=== PATIENT | male | born 1965 | race Two or more races ===

== ENCOUNTER 2022-11-17 10:09 | Inpatient (IN) | payer OTHER ==
[2022-11-17] MEDS ORDERED: ACETAMINOPHEN 1000 MG/100 ML BAG IVPB ONE ×3 (12:05→18:41)
[2022-11-17] MEDS ORDERED: SODIUM CHLORIDE 0.9% 500 ML INFUS.BAG IV ONE (12:05)
[2022-11-17] MEDS ORDERED: ACETAMINOPHEN INJECTION 100 ML IVPB ONE ×2 (13:19→19:03)
[2022-11-17 13:24] LABS: INR 1.25 (0.83-1.09); PROTHROMBIN TIME (PATIENT) 14.5 SEC (9.7-13.0)
[2022-11-17 13:27] LABS: ACTIVATED PTT 32.6 SECONDS (25.2-36.5)
[2022-11-17 13:28] LABS: BASO % 0.3 % (0-2.0); EOS % 0.1 % (0-4.5); HEMATOCRIT 60.7 % (35.4-49); LYMPH % 6.8 % (8-40); MCH 32.7 pg (25.7-33.7); MCHC 34.2 g/dl (32.0-35.9); MEAN CELL VOLUME 95.5 fl (80-96); MONO % 9.8 % (3.8-10.2); PLATELET COUNT 221 10^3/uL (134-434); RBC 6.36 M/mm3 (4.00-5.60); RDW 13.4 % (11.9-15.9); WHITE BLOOD COUNT 15.9 K/mm3 (4.0-10.0)
[2022-11-17 13:30] LABS: HEMOGLOBIN 20.8 GM/dL (11.7-16.9)
[2022-11-17 13:36] LABS: CHLORIDE 95 mmol/L (98-107); SODIUM 120 mmol/L (136-145)
[2022-11-17 13:38] LABS: CALCIUM 8.8 mg/dL (8.5-10.1)
[2022-11-17 13:39] LABS: ALBUMIN 2.9 g/dl (3.4-5.0); BLOOD UREA NITROGEN 22.4 mg/dL (7-18); CO2 28 mmol/L (21-32); GLUCOSE,RANDOM 179 mg/dL (74-106)
[2022-11-17 13:42] LABS: CREATININE 1.3 mg/dL (0.55-1.3)
[2022-11-17] MEDS ORDERED: CEFTRIAXONE 1 GM in DEXTROSE 5%-WATER - 100 ML IVPB ONE (13:42)
[2022-11-17] MEDS ORDERED: VANCOMYCIN/WATER 2 GM/400 ML PREMIX BAG (RESTRICTED TO ID ONLY) IVPB ONE (13:42)
[2022-11-17 13:43] LABS: TOT PROT 10.2 g/dl (6.4-8.2)
[2022-11-17 14:09] LABS: ANION GAP -2 MMOL/L (8-16); POTASSIUM > 10.0 mmol/L (3.5-5.1)
[2022-11-17 14:23] LABS: ERYTHROCYTE SEDIMENTATION RATE 5 mm/hr (0-20)
[2022-11-17] MEDS ORDERED: KETOROLAC TROMETHAMINE 15 MG/ML VIAL IVPUSH ONE (15:11)
[2022-11-17] MEDS ORDERED: CEFTRIAXONE 1 GM/50 ML BAG ONE (15:12)
[2022-11-17] MEDS ORDERED: KETOROLAC TROMETHAMINE 15 MG/ML VIAL ONE (15:22)
[2022-11-17 15:59] LABS: BASO % 0.2 % (0-2.0); EOS % 0.1 % (0-4.5); HEMATOCRIT 54.6 % (35.4-49); HEMOGLOBIN 18.6 GM/dL (11.7-16.9); LYMPH % 5.4 % (8-40); MCH 32.5 pg (25.7-33.7); MCHC 34.1 g/dl (32.0-35.9); MEAN CELL VOLUME 95.1 fl (80-96); MEAN PLT VOLUME 8.9 fl (7.5-11.1); MONO % 8.6 % (3.8-10.2); NEUT % 85.7 % (42.8-82.8); PLATELET COUNT 211 10^3/uL (134-434); RBC 5.74 M/mm3 (4.00-5.60); RDW 12.6 % (11.9-15.9); WHITE BLOOD COUNT 17.4 K/mm3 (4.0-10.0)
[2022-11-17 16:59] LABS: POTASSIUM 4.4 mmol/L (3.5-5.1)
[2022-11-17 17:04] LABS: ALBUMIN 2.9 g/dl (3.4-5.0); BLOOD UREA NITROGEN 18.1 mg/dL (7-18)
[2022-11-17 17:07] LABS: CREATININE 1.1 mg/dL (0.55-1.3)
[2022-11-17 17:09] LABS: BILIRUBIN,TOTAL 0.5 mg/dL (0.2-1)
[2022-11-17 17:12] LABS: TOT PROT 6.6 g/dl (6.4-8.2)
[2022-11-17] MEDS: INSULIN SLIDING SCALE (NOVOLOG) 1 VIAL SQ SCH (23:23)
[2022-11-18] MEDS: ACETAMINOPHEN 1000 MG/100 ML BAG IVPB PRN ×2 (00:29→06:38)
[2022-11-18 01:06] VITALS: BMI 25.7
[2022-11-18] MEDS: PIPERACILLIN/TAZOB 3.375 GM 3.375 GM in DEXTROSE 5%-WATER - 50 ML IVPB SCH ×5 (01:57→20:41)
[2022-11-18] MEDS ORDERED: VANCOMYCIN/WATER FOR INJ (PEG) 1,000 MG/200 ML BAG IVPB ONE (06:00)
[2022-11-18] MEDS: INSULIN SLIDING SCALE (NOVOLOG) 1 VIAL SQ SCH ×4 (06:40→21:46)
[2022-11-18 07:09] LABS: BASO % 0.3 % (0-2.0); EOS % 0.8 % (0-4.5); HEMOGLOBIN 17.9 GM/dL (11.7-16.9); LYMPH % 8.2 % (8-40); MCH 32.2 pg (25.7-33.7); MCHC 33.1 g/dl (32.0-35.9); MEAN CELL VOLUME 97.2 fl (80-96); MEAN PLT VOLUME 9.5 fl (7.5-11.1); MONO % 10.4 % (3.8-10.2); NEUT % 80.3 % (42.8-82.8); PLATELET COUNT 202 10^3/uL (134-434); RBC 5.55 M/mm3 (4.00-5.60); RDW 12.4 % (11.9-15.9)
[2022-11-18 07:29] LABS: POTASSIUM 4.1 mmol/L (3.5-5.1)
[2022-11-18 07:31] LABS: ALBUMIN 2.7 g/dl (3.4-5.0); CALCIUM 7.7 mg/dL (8.5-10.1)
[2022-11-18 07:32] LABS: BLOOD UREA NITROGEN 15.3 mg/dL (7-18); MAGNESIUM 2.1 mg/dL (1.8-2.4)
[2022-11-18 07:35] LABS: CREATININE 0.8 mg/dL (0.55-1.3)
[2022-11-18 07:36] LABS: BILIRUBIN,TOTAL 0.6 mg/dL (0.2-1); TOT PROT 6.5 g/dl (6.4-8.2)
[2022-11-18 07:37] LABS: CHOLESTEROL 77 mg/dL (50-200)
[2022-11-18 07:38] LABS: PHOSPHOROUS 2.3 mg/dL (2.5-4.9)
[2022-11-18 07:39] LABS: LDL CHOLESTEROL (ONLY SJRH) 36 mg/dL (5-100)
[2022-11-18 07:41] LABS: HDL CHOLESTEROL 33 mg/dL (40-60)
[2022-11-18] MEDS ORDERED: INSULIN (NOVOLOG) ASPART 100 UNITS/ML 10ML VIAL ONE (08:33)
[2022-11-18] MEDS: ENOXAPARIN NA (PORCINE) 40 MG/0.4 ML DISP.SYRIN SQ SCH (09:47)
[2022-11-18] MEDS: LISINOPRIL 10 MG TABLET PO SCH (09:47)
[2022-11-18] MEDS ORDERED: CEFTRIAXONE 1 GM in DEXTROSE 5%-WATER - 50 ML IVPB SCH (10:00)
[2022-11-18 10:53] LABS: PH,URINE 5.5 (5.0-8.0); URINE APPEARANCE CLEAR; URINE BILIRUBIN NEGATIVE (NEGATIVE); URINE COLOR YELLOW; URINE GLUCOSE (UA) 3+ (NEGATIVE); URINE KETONE TRACE (NEGATIVE); URINE LEUK ESTERASE NEGATIVE (NEGATIVE); URINE NITRITE NEGATIVE (NEGATIVE); URINE PROTEIN TRACE (NEGATIVE)
[2022-11-18] MEDS ORDERED: oxyCODONE HCL 5 MG TABLET PO PRN (11:59)
[2022-11-18] MEDS ORDERED: ACETAMINOPHEN 1000 MG/100 ML BAG IVPB PRN (13:17)
[2022-11-18] MEDS: oxyCODONE HCL 5 MG TABLET PO PRN ×2 (13:40→21:48)
[2022-11-18] MEDS: VANCOMYCIN/WATER 1250 MG 1,250 MG/250 ML BAG IVPB SCH (13:42)
[2022-11-18] MEDS: ACETAMINOPHEN 500 MG TABLET (FP) PO SCH ×2 (17:12→22:15)
[2022-11-18] MEDS: LIDOCAINE 5% TOPICAL PATCH TP SCH (17:14)
[2022-11-18] MEDS ORDERED: VANCOMYCIN/WATER FOR INJ (PEG) 1,000 MG/200 ML BAG IVPB SCH (18:00)
[2022-11-18] MEDS: LIDOCAINE PATCH REMOVAL MC SCH (21:46)
[2022-11-18] MEDS: ROSUVASTATIN CA 20 MG TABLET PO SCH (22:31)
[2022-11-19] MEDS: VANCOMYCIN/WATER 1250 MG 1,250 MG/250 ML BAG IVPB SCH (01:00)
[2022-11-19] MEDS: PIPERACILLIN/TAZOB 3.375 GM 3.375 GM in DEXTROSE 5%-WATER - 50 ML IVPB SCH ×3 (02:15→17:31)
[2022-11-19] MEDS: oxyCODONE HCL 5 MG TABLET PO PRN ×3 (05:56→19:52)
[2022-11-19] MEDS: ACETAMINOPHEN 500 MG TABLET (FP) PO SCH ×4 (05:57→23:53)
[2022-11-19] MEDS: INSULIN SLIDING SCALE (NOVOLOG) 1 VIAL SQ SCH ×4 (06:04→23:54)
[2022-11-19] MEDS: LIDOCAINE 5% TOPICAL PATCH TP SCH (09:42)
[2022-11-19] MEDS: ENOXAPARIN NA (PORCINE) 40 MG/0.4 ML DISP.SYRIN SQ SCH (09:43)
[2022-11-19] MEDS: LISINOPRIL 10 MG TABLET PO SCH (09:43)
[2022-11-19] MEDS ORDERED: oxyCODONE HCL 5 MG TABLET PO PRN (10:18)
[2022-11-19 11:00] LABS: BASO % 0.4 % (0-2.0); EOS % 3.1 % (0-4.5); HEMATOCRIT 51.7 % (35.4-49); LYMPH % 10.5 % (8-40); MCH 32.3 pg (25.7-33.7); MCHC 32.9 g/dl (32.0-35.9); MEAN CELL VOLUME 98.1 fl (80-96); MEAN PLT VOLUME 9.3 fl (7.5-11.1); MONO % 8.8 % (3.8-10.2); NEUT % 77.2 % (42.8-82.8); PLATELET COUNT 190 10^3/uL (134-434); RBC 5.27 M/mm3 (4.00-5.60); RDW 12.4 % (11.9-15.9); WHITE BLOOD COUNT 10.9 K/mm3 (4.0-10.0)
[2022-11-19 11:19] LABS: POTASSIUM 4.2 mmol/L (3.5-5.1)
[2022-11-19 11:29] LABS: ALBUMIN 2.5 g/dl (3.4-5.0); BLOOD UREA NITROGEN 15.7 mg/dL (7-18); CALCIUM 7.9 mg/dL (8.5-10.1); CREATININE 0.9 mg/dL (0.55-1.3)
[2022-11-19 11:30] LABS: BILIRUBIN,TOTAL 0.2 mg/dL (0.2-1); MAGNESIUM 2.2 mg/dL (1.8-2.4)
[2022-11-19] MEDS: BACITRACIN ZINC 15 GM TUBE TOPICAL OINTMENT TP SCH (12:50)
[2022-11-19] MEDS: ROSUVASTATIN CA 20 MG TABLET PO SCH (23:53)
[2022-11-19] MEDS: LIDOCAINE PATCH REMOVAL MC SCH (23:54)
[2022-11-20] MEDS: PIPERACILLIN/TAZOB 3.375 GM 3.375 GM in DEXTROSE 5%-WATER - 50 ML IVPB SCH ×3 (02:39→17:50)
[2022-11-20] MEDS: oxyCODONE HCL 5 MG TABLET PO PRN ×3 (03:01→19:46)
[2022-11-20] MEDS: INSULIN SLIDING SCALE (NOVOLOG) 1 VIAL SQ SCH ×4 (06:01→22:33)
[2022-11-20] MEDS: ACETAMINOPHEN 500 MG TABLET (FP) PO SCH ×4 (06:01→22:34)
[2022-11-20 08:18] LABS: BASO % 0.5 % (0-2.0); EOS % 4.4 % (0-4.5); HEMATOCRIT 50.9 % (35.4-49); HEMOGLOBIN 17.2 GM/dL (11.7-16.9); LYMPH % 16.7 % (8-40); MCH 32.4 pg (25.7-33.7); MCHC 33.8 g/dl (32.0-35.9); MEAN CELL VOLUME 95.8 fl (80-96); MEAN PLT VOLUME 8.7 fl (7.5-11.1); MONO % 10.5 % (3.8-10.2); NEUT % 67.9 % (42.8-82.8); PLATELET COUNT 231 10^3/uL (134-434); RBC 5.31 M/mm3 (4.00-5.60); RDW 12.4 % (11.9-15.9); WHITE BLOOD COUNT 9.1 K/mm3 (4.0-10.0)
[2022-11-20 08:26] LABS: INR 1.13 (0.83-1.09); PROTHROMBIN TIME (PATIENT) 13.1 SEC (9.7-13.0)
[2022-11-20] MEDS ORDERED: BUPIVACAINE HCL/PF 0.5% (5MG/ML) 10 ML VIAL ONE (08:41)
[2022-11-20] MEDS ORDERED: LIDOCAINE HCL 1%, 10 MG/ML (10ML VIAL) MDV ONE (08:41)
[2022-11-20 08:49] LABS: POTASSIUM 5.1 mmol/L (3.5-5.1)
[2022-11-20 08:51] LABS: ALBUMIN 2.5 g/dl (3.4-5.0); BLOOD UREA NITROGEN 14.1 mg/dL (7-18); CALCIUM 8.4 mg/dL (8.5-10.1)
[2022-11-20 08:52] LABS: MAGNESIUM 2.1 mg/dL (1.8-2.4)
[2022-11-20 08:55] LABS: CREATININE 0.8 mg/dL (0.55-1.3)
[2022-11-20 08:56] LABS: BILIRUBIN,TOTAL 0.2 mg/dL (0.2-1); TOT PROT 6.2 g/dl (6.4-8.2)
[2022-11-20] MEDS ORDERED: LIDOCAINE HCL/PF 2% SDV 5ML VIAL ONE (09:40)
[2022-11-20] MEDS ORDERED: PROPOFOL 20 ML ONE (09:40)
[2022-11-20] MEDS ORDERED: MIDAZOLAM HCL 2 MG/2 ML SINGLE DOSE VIAL ONE (09:41)
[2022-11-20] MEDS ORDERED: PIPERACILLIN/TAZOBACTAM 3.375 GM VIAL IVPB ONE ×2 (09:46→09:55)
[2022-11-20] MEDS ORDERED: DEXAMETHASONE SOD PHOSPHATE 4 MG/1 ML VIAL ONE (10:03)
[2022-11-20] MEDS: BACITRACIN ZINC 15 GM TUBE TOPICAL OINTMENT TP SCH (10:03)
[2022-11-20] MEDS: LIDOCAINE 5% TOPICAL PATCH TP SCH (10:04)
[2022-11-20] MEDS: ENOXAPARIN NA (PORCINE) 40 MG/0.4 ML DISP.SYRIN SQ SCH (10:04)
[2022-11-20] MEDS ORDERED: KETOROLAC TROMETHAMINE 30 MG/1 ML VIAL ONE (10:21)
[2022-11-20] MEDS ORDERED: ONDANSETRON 4 MG/2 ML VIAL ONE (10:21)
[2022-11-20] MEDS ORDERED: PROMETHAZINE HCL 25 MG/1 ML VIAL IVPB PRN ×2 (10:40→11:23)
[2022-11-20] MEDS ORDERED: ACETAMINOPHEN 1000 MG/100 ML BAG IVPB ONE (10:40)
[2022-11-20] MEDS ORDERED: ONDANSETRON 4 MG/2 ML VIAL IVPUSH PRN ×2 (10:40→11:23)
[2022-11-20] MEDS ORDERED: LACTATED RINGERS SOLUTION 1,000 ML IV SCH (10:45)
[2022-11-20] MEDS ORDERED: ACETAMINOPHEN INJECTION 100 ML IVPB ONE (11:15)
[2022-11-20] MEDS: LACTATED RINGERS SOLUTION 1,000 ML IV SCH (11:45)
[2022-11-20] MEDS ORDERED: LIDOCAINE PATCH REMOVAL MC SCH (22:00)
[2022-11-20] MEDS: ROSUVASTATIN CA 20 MG TABLET PO SCH (22:29)
[2022-11-20] MEDS: INSULIN (LEVEMIR) 100 UNITS/ML UNITS SQ SCH (22:29)
[2022-11-20] MEDS: LIDOCAINE PATCH REMOVAL MC SCH (22:30)
[2022-11-20] MEDS: LISINOPRIL 10 MG TABLET PO SCH (22:34)
[2022-11-21] MEDS: PIPERACILLIN/TAZOB 3.375 GM 3.375 GM in DEXTROSE 5%-WATER - 50 ML IVPB SCH ×3 (02:23→17:00)
[2022-11-21] MEDS: oxyCODONE HCL 5 MG TABLET PO PRN ×3 (02:25→16:56)
[2022-11-21] MEDS: ACETAMINOPHEN 500 MG TABLET (FP) PO SCH ×4 (06:10→23:02)
[2022-11-21] MEDS: INSULIN SLIDING SCALE (NOVOLOG) 1 VIAL SQ SCH ×4 (06:11→21:58)
[2022-11-21 07:57] LABS: BASO % 0.2 % (0-2.0); EOS % 0.4 % (0-4.5); HEMATOCRIT 50.8 % (35.4-49); HEMOGLOBIN 16.6 GM/dL (11.7-16.9); LYMPH % 12.6 % (8-40); MCH 31.8 pg (25.7-33.7); MCHC 32.7 g/dl (32.0-35.9); MEAN CELL VOLUME 97.2 fl (80-96); MEAN PLT VOLUME 9.1 fl (7.5-11.1); MONO % 6.5 % (3.8-10.2); NEUT % 80.3 % (42.8-82.8); PLATELET COUNT 226 10^3/uL (134-434); RBC 5.23 M/mm3 (4.00-5.60); RDW 12.3 % (11.9-15.9); WHITE BLOOD COUNT 9.9 K/mm3 (4.0-10.0)
[2022-11-21 08:14] LABS: POTASSIUM 4.5 mmol/L (3.5-5.1)
[2022-11-21 08:17] LABS: CALCIUM 8.5 mg/dL (8.5-10.1)
[2022-11-21 08:18] LABS: ALBUMIN 2.6 g/dl (3.4-5.0); MAGNESIUM 2.1 mg/dL (1.8-2.4)
[2022-11-21 08:21] LABS: CREATININE 0.8 mg/dL (0.55-1.3)
[2022-11-21 08:22] LABS: BILIRUBIN,TOTAL 0.2 mg/dL (0.2-1); TOT PROT 6.2 g/dl (6.4-8.2)
[2022-11-21] MEDS: LISINOPRIL 10 MG TABLET PO SCH (10:25)
[2022-11-21] MEDS: LIDOCAINE 5% TOPICAL PATCH TP SCH (10:25)
[2022-11-21] MEDS: ENOXAPARIN NA (PORCINE) 40 MG/0.4 ML DISP.SYRIN SQ SCH (10:25)
[2022-11-21] MEDS ORDERED: INSULIN (NOVOLOG) ASPART 100 UNITS/ML 10ML VIAL ONE ×3 (11:45→21:52)
[2022-11-21] MEDS: LACTATED RINGERS SOLUTION 1,000 ML IV SCH (12:09)
[2022-11-21] MEDS: INSULIN (LEVEMIR) 100 UNITS/ML UNITS SQ SCH (21:58)
[2022-11-21] MEDS: ROSUVASTATIN CA 20 MG TABLET PO SCH (21:58)
[2022-11-21] MEDS: LIDOCAINE PATCH REMOVAL MC SCH (22:01)
[2022-11-22] MEDS: PIPERACILLIN/TAZOB 3.375 GM 3.375 GM in DEXTROSE 5%-WATER - 50 ML IVPB SCH ×3 (01:38→17:27)
[2022-11-22] MEDS: LACTATED RINGERS SOLUTION 1,000 ML IV SCH ×2 (01:57→17:26)
[2022-11-22] MEDS: ACETAMINOPHEN 500 MG TABLET (FP) PO SCH ×4 (05:14→22:25)
[2022-11-22] MEDS: oxyCODONE HCL 5 MG TABLET PO PRN (05:16)
[2022-11-22] MEDS ORDERED: INSULIN (NOVOLOG) ASPART 100 UNITS/ML 10ML VIAL ONE (06:38)
[2022-11-22] MEDS: INSULIN SLIDING SCALE (NOVOLOG) 1 VIAL SQ SCH ×4 (06:41→21:39)
[2022-11-22 07:15] VITALS: RESP 18
[2022-11-22 08:36] LABS: BASO % 1.2 % (0-2.0); EOS % 3.2 % (0-4.5); HEMATOCRIT 50.5 % (35.4-49); HEMOGLOBIN 17.1 GM/dL (11.7-16.9); LYMPH % 31.9 % (8-40); MCH 32.1 pg (25.7-33.7); MCHC 33.8 g/dl (32.0-35.9); MEAN PLT VOLUME 8.7 fl (7.5-11.1); MONO % 10.5 % (3.8-10.2); NEUT % 53.2 % (42.8-82.8); PLATELET COUNT 221 10^3/uL (134-434); RBC 5.32 M/mm3 (4.00-5.60); RDW 12.6 % (11.9-15.9); WHITE BLOOD COUNT 6.5 K/mm3 (4.0-10.0)
[2022-11-22 08:48] LABS: CHLORIDE 107 mmol/L (98-107); POTASSIUM 4.5 mmol/L (3.5-5.1); SODIUM 141 mmol/L (136-145)
[2022-11-22 08:56] LABS: TOT PROT 5.9 g/dl (6.4-8.2)
[2022-11-22 08:57] LABS: ALBUMIN 2.5 g/dl (3.4-5.0)
[2022-11-22 08:58] LABS: ANION GAP 4 MMOL/L (8-16); BLOOD UREA NITROGEN 14.4 mg/dL (7-18); CALCIUM 8.6 mg/dL (8.5-10.1); CO2 30 mmol/L (21-32); MAGNESIUM 1.7 mg/dL (1.8-2.4); SGPT/ALT 60 U/L (13-61)
[2022-11-22 08:59] LABS: CREATININE 0.8 mg/dL (0.55-1.3); GLUCOSE,RANDOM 182 mg/dL (74-106); SGOT/AST 50 U/L (15-37)
[2022-11-22 09:00] LABS: BILIRUBIN,TOTAL < 0.1 mg/dL (0.2-1)
[2022-11-22 09:01] LABS: ALK PHOS 68 U/L (45-117)
[2022-11-22] MEDS ORDERED: ERGOCALCIFEROL (VIT D2) 50,000 UNIT (1.25 MG) CAPSULE PO SCH ×2 (10:00)
[2022-11-22] MEDS: ENOXAPARIN NA (PORCINE) 40 MG/0.4 ML DISP.SYRIN SQ SCH (10:48)
[2022-11-22] MEDS: LISINOPRIL 10 MG TABLET PO SCH (10:49)
[2022-11-22] MEDS: LIDOCAINE 5% TOPICAL PATCH TP SCH (10:49)
[2022-11-22] MEDS: INSULIN (LEVEMIR) 100 UNITS/ML UNITS SQ SCH (17:28)
[2022-11-22] MEDS: ROSUVASTATIN CA 20 MG TABLET PO SCH (21:39)
[2022-11-22] MEDS: LIDOCAINE PATCH REMOVAL MC SCH (21:42)
[2022-11-23] MEDS: PIPERACILLIN/TAZOB 3.375 GM 3.375 GM in DEXTROSE 5%-WATER - 50 ML IVPB SCH ×2 (01:39→10:18)
[2022-11-23] MEDS: INSULIN SLIDING SCALE (NOVOLOG) 1 VIAL SQ SCH ×2 (06:07→12:06)
[2022-11-23] MEDS: ACETAMINOPHEN 500 MG TABLET (FP) PO SCH ×2 (06:08→10:19)
[2022-11-23] MEDS: INSULIN (LEVEMIR) 100 UNITS/ML UNITS SQ SCH (06:08)
[2022-11-23 09:54] LABS: BASO % 0.9 % (0-2.0); EOS % 3.6 % (0-4.5); HEMATOCRIT 53.1 % (35.4-49); HEMOGLOBIN 17.5 GM/dL (11.7-16.9); LYMPH % 26.8 % (8-40); MCH 31.8 pg (25.7-33.7); MCHC 32.9 g/dl (32.0-35.9); MEAN CELL VOLUME 96.4 fl (80-96); MEAN PLT VOLUME 8.9 fl (7.5-11.1); MONO % 10.5 % (3.8-10.2); NEUT % 58.2 % (42.8-82.8); PLATELET COUNT 261 10^3/uL (134-434); RDW 12.6 % (11.9-15.9); WHITE BLOOD COUNT 6.1 K/mm3 (4.0-10.0)
[2022-11-23 10:10] LABS: POTASSIUM 4.6 mmol/L (3.5-5.1)
[2022-11-23 10:12] LABS: CALCIUM 8.5 mg/dL (8.5-10.1)
[2022-11-23 10:13] LABS: ALBUMIN 2.7 g/dl (3.4-5.0); BLOOD UREA NITROGEN 14.8 mg/dL (7-18); MAGNESIUM 1.7 mg/dL (1.8-2.4)
[2022-11-23 10:16] LABS: CREATININE 0.9 mg/dL (0.55-1.3)
[2022-11-23 10:18] LABS: BILIRUBIN,TOTAL 0.2 mg/dL (0.2-1); TOT PROT 6.3 g/dl (6.4-8.2)
[2022-11-23] MEDS: LIDOCAINE 5% TOPICAL PATCH TP SCH (10:18)
[2022-11-23] MEDS: ENOXAPARIN NA (PORCINE) 40 MG/0.4 ML DISP.SYRIN SQ SCH (10:19)
[2022-11-23] MEDS: LISINOPRIL 10 MG TABLET PO SCH (10:20)
[2022-11-23 11:03] VITALS: BP 146/97; PULSE 70; TEMP 98.5
== END 2022-11-23 12:40 | disposition home or self-care (01) | DRG 720 ==
LOC: JER 10:09 → JERFT 10:09 → JERBED 19:48 → J7W 21:16
PROVIDERS: ADMIT Internal Medicine; ATTEND Internal Medicine
PROC: 0J9D0ZX Drainage of Right Upper Arm Subcutaneous Tissue and Fascia, Open Approach, Diagnostic (ICD-10-PCS; principal; 2022-11-20 12:00)
DX: A41.9 Sepsis, unspecified organism (principal); L02.413 Cutaneous abscess of right upper limb; E11.9 Type 2 diabetes mellitus without complications; L03.113 Cellulitis of right upper limb; Z79.4 Long term (current) use of insulin; E78.5 Hyperlipidemia, unspecified; I10 Essential (primary) hypertension; F17.210 Nicotine dependence, cigarettes, uncomplicated; E86.0 Dehydration
CPT/HCPCS: 36415; 72125-TC; 73030-TC-RT-FY; 73200-TC-RT; 80053; 80061; 81003; 82962; 83036; 83605; 83735; 84100; 84484; 85025; 85610; 85651; 85730; 86140; 86707; 86803; 86850; 86900; 86901; 87040; 87070; 87086; 87186; 87205; 87340; 87350; 87517; 93005; 93010; 94760; 99285-25